=== PATIENT | male | born 1995 | race Caucasian/White ===

== ENCOUNTER 2018-12-23 08:25 | Emergency (ER) | payer OTHER ==
[~2018-12-23] VITALS: Ht 185.4 cm; Wt 91.5 kg
[2018-12-23 08:26] VITALS: BP 125/59
--- NOTE | 2018-12-23 09:30 | REP ---
RIGHT ELBOW, FOUR VIEWS: Four views of the right elbow are performed. No acute fracture or dislocation is seen. Oval lucency at the articulating surface, in a subchondral location, of the lateral humeral epicondyle is consistent with an osteochrondral defect measuring approximately 10 x 6 mm. IMPRESSION: No acute fracture or dislocation. Osteochrondral defect lateral humeral epicondyle. Electronically Signed by Nico Marquez MD 12/23/2018 03:10 P
== END 2018-12-23 09:48 | disposition home or self-care (01) ==
LOC: M ED 08:25
DX: S50.01XA Contusion of right elbow, initial encounter (principal); M24.10 Other articular cartilage disorders, unspecified site; X58.XXXA Exposure to other specified factors, initial encounter; Y92.9 Unspecified place or not applicable; Y93.9 Activity, unspecified; Y99.9 Unspecified external cause status

== ENCOUNTER → 2019-01-06 | Outpatient (CLI) | payer OTHER ==
--- NOTE | 2019-01-07 10:43 | REP ---
HISTORY: Chronic elbow pain. No trauma. COMPARISON: None. Chondral and subchondral in the capitellum, there is a 1.1 x 0.6 x 1.2 cm sized low and low intermediate T1 signal with high and intermediate T2 signal lesion. The chondral surface is thinned and irregular. There is a slight elbow joint effusion. There is no radial head chondral or subchondral abnormality. The common extensor and common flexor tendons are intact and of normal appearing low signal throughout. All imaged flexor and extensor tendons are intact and of normal appearing low signal throughout. The radial and ulnar collateral ligaments are intact and of normal appearing low signal throughout. The signal and morphology throughout the imaged musculature is within normal limits. IMPRESSION: 1. There is an osteochondral lesion involving the capitellum as described above. 2. There is a slight elbow joint effusion. Electronically Signed by Miguel Navarro DO 01/07/2019 10:47 A
== END ==
LOC: M RAD 14:39
PROVIDERS: ATTEND Physician Assistant
DX: M25.521 Pain in right elbow (principal); M93.221 Osteochondritis dissecans, right elbow; M25.421 Effusion, right elbow